=== PATIENT | female | born 1960 | race Caucasian/White ===

== ENCOUNTER 2025-02-16 13:31 | Outpatient (CLI) | payer BC, SELFPAY ==
--- NOTE | ~2025-02-16 | MM_ITS ---
EXAMINATION: MM screening alda BI w radha HISTORY: Screening TECHNIQUE: Craniocaudal and mediolateral oblique 3-D tomosynthesis images were obtained and synthetic 2-D images were generated. CAD analysis was submitted and interpreted. COMPARISON: No prior mammogram is available for comparison at this institution. BREAST PARENCHYMAL COMPOSITION: Not Dense: The breasts are almost entirely fatty. FINDINGS: There is no evidence of suspicious mass, calcification, or architectural distortion to suggest malignancy. IMPRESSION: 1. No mammographic evidence of malignancy. Recommend routine screening mammography in one year. BI-RADS Category 2: Benign finding(s) Reviewed, dictated and finalized at location Q. IMPRESSION: 1. No mammographic evidence of malignancy. Recommend routine screening mammogra phy in one year. BI-RADS Category 2: Benign finding(s)
--- OUTSIDE RECORDS SUMMARY | 2025-02-16 15:30 | XMS_ITS | Encounter Summary ---
Author Organization [employer] Address 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
--- OUTSIDE RECORDS SUMMARY | 2025-02-16 15:30 | XMS_ITS | Encounter Summary ---
Author Organization [facility] Address 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
--- OUTSIDE RECORDS SUMMARY | 2025-02-16 15:30 | XMS_ITS | Encounter Summary ---
Author Organization [employer] Address 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
--- OUTSIDE RECORDS SUMMARY | 2025-02-16 15:30 | XMS_ITS | Encounter Summary ---
Author Organization [employer] Address 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
--- OUTSIDE RECORDS SUMMARY | 2025-02-16 15:30 | XMS_ITS | Encounter Summary ---
Author Organization [employer] Address 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
--- OUTSIDE RECORDS SUMMARY | 2025-02-16 15:30 | XMS_ITS | Encounter Summary ---
Author Organization [employer] [facility] Address 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 Gender Identity Not on file Sexual Orientation Not on file documented as of this encounter Plan of Treatment Not on file documented as of this encounter Procedures Procedure Name Priority Date/Time Associated Diagnosis Comments MAMMO SCREENING BILAT Routine 03/15/2008 3:48 PM TAILING MACHINE OPERATOR documented in this encounter Results * MAMMO SCREENING BILAT (03/15/2008 3:48 PM TAILING MACHINE OPERATOR) Anatomical Region Laterality Modality Breast Bilateral Other 03/15/2008 3:48 PM TAILING MACHINE OPERATOR Narrative 03/16/2008 8:20 AM TAILING MACHINE OPERATOR [facility] [place] [address] [place], [place] [address] Admit Date: 03/15/2008 DAMARIS STARKEY Sex: F Admit Prov: DAMARIS BOWEN Date: 1960 Primary Care Prov: DAMARIS BOWEN CMRN: [id number] [id number] Ordering Prov: DAMARIS BOWEN Accession Number: [id number] Interpretation SCREENING MAMMOGRAM Findings: There are scattered fibroglandular densities. No significant mass, malignant calcification or architectural distortion is noted. Summary: No mammographic evidence of malignancy. There has been no significant change from prior study of 02/08. Recommendations: Bilateral yearly screening mammogram is recommended. Assessment BIRADS: 1-Negative Recommendation: Normal interval follow-up Dictated by: MIRTHA FERNANDEZ Electronically signed by: MIRTHA FERNANDEZ 03/16/2008 08:20 Transcribed: 03/16/2008 08:20 CXZ Procedure Note Mirtha Fernandez - 03/16/[address] [address] Admit Date: 03/15/2008 SELENEADAMS BAXTERDAMARIS Sex: F Admit Prov: DAMARIS BOWEN Date: 1960 Primary Care Prov: DAMARIS BOWEN CMRN: [id number] [id number] [facility] Ordering Prov: DAMARIS BOWEN Interpretation SCREENING MAMMOGRAM Findings: There are scattered fibroglandular densities. Nosignificant mass, malignant calcification or architectural distortion is noted. Summary: No mammographic evidence of malignancy. There has been no significant change from prior study of 02/08. Recommendations: Bilateral yearly screening mammogram is recommended. Assessment BIRADS: 1-Negative Recommendation: Normal interval follow-up Dictated by: MIRTHA FERNANDEZ Electronically signed by: MIRTHA FERNANDEZ 03/16/2008 08:20 Transcribed: 03/16/2008 08:20 CXZ Damaris Bowen MD MAMMO ORDERABLES Final Result documented in this encounter Visit Diagnoses Diagnosis Other screening mammogram documented in this encounter Care Teams Human Geography Faculty Member Relationship Specialty Start Date End Date Damaris Bowen MD [facility] [address] [address] PCP - General 02/22/04 documented as of this encounter
--- OUTSIDE RECORDS SUMMARY | 2025-02-16 15:30 | XMS_ITS | Encounter Summary ---
Author Organization [facility] Address [address] [place] [address] Care Team Providers Care Nuclear Control Operator Name Role Phone Damaris Bowen MD Primary Care Provider Encounter Details Date Type Department Care Team (Late st Contact Info) Description 09/19/2007 Outpatient Historical [facility] [address] [place] [address] [address] [place] [address] Abnormal Mammogram, Unspecified Social History Tobacco Use Types Packs/Day Years Used Date Smoking Tobacco: Never Assessed Comments Unknown Sex and Gender Information Value Date Recorded Sex Assigned at Not on file 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 Gender Identity Not on file Sexual Orientation Not on file documented as of this encounter Plan of Treatment Not on file documented as of this encounter Procedures Procedure Name Priority Date/Time Associated Diagnosis Comments MAMMO DIAGNOSTIC UNI RIGHT W OR WO CAD Routine 09/19/2007 10:46 AM CDT documented in this encounter Results * MAMMO DIGITAL DIAG UNI RIGHT (09/19/2007 10:46 AM CDT) Anatomical Region Laterality Modality Breast Right Other 09/19/2007 10:4 6 AM CDT Narrative 09/19/2007 5:39 PM CDT [address] [address] Admit Date: 09/19/2007 DAMARIS STARKEY Sex: F Admit Prov: DAMARIS BOWEN Date: 1960 Primary Care Prov: DAMARIS BOWEN CMRN: [id number] [id number] [facility] Ordering Prov: DAMARIS BOWEN Accession Number: [id number] Interpretation RIGHT DIAGNOSTIC DIGITAL MAMMOGRAMS WITH COMPUTER ASSISTED DIAGNOSIS, 09/19/2007 Reason For Examination: Short-term followup study. Findings: Comparison is made to mammograms from March 2007. There are several small nodules in the right breast. The largest is in the lower-central portion of the breast and measures no more than 6 mm in size. There is no dominant or spiculated mass, malignant calcification or other sign of malignancy. There has been no significant change since 03/19/2007. Prior sonograms did document some cysts in this area. The CAD system was utilized. Conclusion: Stable nodules in the right breast. Recommendation: The patient should resume bilateral screening mammography in March 2008. Assessment BIRADS: 2-Benign finding Recommendation: Normal interval follow-up Dictated by: ABHISHEK MAGANA Electronically signed by: ABHISHEK MAGANA 09/19/2007 17:39 Transcribed: 09/19/2007 15:04 DKT Procedure Note Abhishek Magana MD - 09/19/[address] [address] Admit Date: 09/19/2007 DAMARIS STARKEY Sex: F Admit Prov: DAMARIS BOWEN Date: 1960 Primary Care Prov: DAMARIS BOWEN CMRN: [id number] Room: [facility] SSN: [id number] IMAGING SERVICES Ordering Prov: DAMARIS BOWEN Interpretation RIGHT DIAGNOSTIC DIGITAL MAMMOGRAMS WITH COMPUTER ASSISTEDDIAGNOSIS, 09/19/2007 Reason For Examination: Short-term followup study. Findings: Comparison is made to mammograms from March 2007. There are several small nodules in the right breast. The largest isin the lower-central portion of the breast and measures no more than 6 mm insize. There is no dominant or spiculated mass, malignant calcification orother sign of malignancy. There has been no significant change since03/19/2007. Prior sonograms did document some cysts in this area. The CAD systemwas utilized. Conclusion: Stable nodules in the right breast. Recommendation: The patient should resume bilateral screeningmammography in March 2008. Assessment BIRADS: 2-Benign finding Recommendation: Normal interval follow-up Dictated by: ABHISHEK MAGANA Electronically signed by: ABHISHEK MAGANA 09/19/2007 17:39 Transcribed: 09/19/2007 15:04 DKT Damaris Bowen MD MAMMO ORDERABLES Final Result documented in this encounter Visit Diagnoses Diagnosis Abnormal mammogram, unspecified documented in this encounter Care Teams Nuclear Control Operator Relationship Specialty Start Date End Date Damaris Bowen MD [address] [place] [address] PCP - General 02/22/04 documented as of this encounter
--- OUTSIDE RECORDS SUMMARY | 2025-02-16 15:31 | XMS_ITS | Encounter Summary ---
Author Organization [facility] Address 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
--- OUTSIDE RECORDS SUMMARY | 2025-02-16 15:31 | XMS_ITS | Clinical Summary ---
Author Organization [facility] Address [address] [place] [address] Phone Care Team Providers Care Nursing Professor Name Role Phone Damaris Bowen MD Primary Care Provider [phone] Encounters Date Type Department Care Team Description 12/08/2024 External Device Data STL ABSTRACTION Provider, Abstract from Last 3 Months Family History Medical History Relation Name Comments Breast Cancer Mother Breast Cancer Other M GR Aunt age of onset u nknown Cancer Neg Hx Ovarian Cancer Neg Hx Relation Name Status Comments Mother Other M GR Aunt Social History Tobacco Use Types Packs/Day Years Used Date Smoking Tobacco: Never Assessed Comments Unknown Sex and Gender Information Value Date Recorded Sex Assigned at Not on file 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 Gender Identity Not on file Sexual Orientation Not on file Occupation Industry Job Start Date Job End Date Not on file Not on file Not on file Not on file Plan of Treatment Health Maintenance Due Date Last Done Comments DTAP/TDAP/TD VACCINES (1 - Tdap) 1981 HPV/Cotest (21-29) 1983 CERVICAL CANCER SCREENING 01/26/1992 HPV/Cotest (30-65) 01/26/1992 PAP SMEAR 01/26/1992 COLORECTAL SCREENING 2007 Colorectal Cancer Screening 2007 FIT-DNA Q 3 years 2007 FIT/FOBT Q 1 year 2007 Flex Sig/CT Colonography Q 5 years 2007 ZOSTER VACCINE (1 of 2) 01/26/2012 INFLUENZA VACCINE (#1) 2024 BREAST CANCER SCREENING 01/23/2025 01/24/20 24, 01/05/2023, 12/08/2021, Additional history exists RSV VACCINE (60+ or ) (1 - 1-dose 75+ series) 2037 Procedures Procedure Name Priority Date/Time Associated Diagnosis Comments MAMMO 3D JOSE SCREEN BILAT W OR WO CAD Routine 01/24/2024 3:25 PM CDT Encounter for screening mammogram for breast cancer from Last 3 Months or Most Recently Relevant to Health Maintenance Results * MAMMO 3D JOSE SCREEN BILAT W OR WO CAD (01/24/2024 3:25 PM CDT) Anatomical Region Laterality Modality Breast Bilateral Mammography 01/24/2024 3:25 PM CDT Impressions 01/24/2024 3:47 PM CDT FINDINGS/IMPRESSION: No suspicious mass, suspicious microcalcifications, or architectural distortion in either breast is identified. Since the prior study, there has been no significant interval change. The computer aided diagnosis detects no significant abnormality. OVERALL FINAL ASSESSMENT: BI-RADS CATEGORY 1 : Negative RECOMMENDATIONS: Routine screening mammogram in one year. DICTATION LOCATION: [facility] Narrative 01/24/2024 3:47 PM CDT BILATERAL FULL-FIELD DIGITAL SCREENING MAMMOGRAM WITH CAD WITH 3D TOMOSYNTHESIS DATE: 01/24/2024 3:25 PM HISTORY: Routine screening. TECHNIQUE: Full-field digital craniocaudal and mediolateral oblique projections of both breasts were obtained. Low-dose full-field digital breast tomosynthesis examination was performed with 2D and 3D acquisitions. Examination is read in conjunction with computer aided detection. COMPARISON: BREAST COMPOSITION: There are scattered areas of fibroglandular density. Procedure Note Betsy Canas MD - 01/24/2024 BILATERAL FULL-FIELD DIGITAL SCREENING MAMMOGRAM WITH CAD WITH 3D TOMOSYNTHESIS DATE: 01/24/2024 3:25 PM HISTORY: Routine screening. TECHNIQUE: Full-field digital craniocaudal and mediolateral oblique projections of both breasts were obtained. Low-dose full-field digital breast tomosynthesis examination was performed with 2D and 3D acquisitions. Examination is read in conjunction with computer aided detection. COMPARISON: BREAST COMPOSITION: There are scattered areas of fibroglandular density. FINDINGS/IMPRESSION: No suspicious mass, suspicious microcalcifications, or architectural distortion in either breast is identified. Since the prior study, there has been no significant interval change. The computer aided diagnosis detects no significant abnormality. OVERALL FINAL ASSESSMENT: BI-RADS CATEGORY 1 : Negative RECOMMENDATIONS: Routine screening mammogram in one year. DICTATION LOCATION: [facility] Damaris Bowen MD MAMMO ORDERABLES Final Result from Last 3 Months or Most Recently Relevant to Health Maintenance Insurance [facility] OPEN ACCESS HMO Care Teams Nursing Professor Relationship Specialty Start Date End Date Damaris Bowen MD [address] [place] [address], [place] [address] PCP - General 02/22/04
--- OUTSIDE RECORDS SUMMARY | 2025-02-16 15:31 | XMS_ITS | Clinical Summary ---
Author Organization [facility] Address [address] [place] [address] Care Team Providers Care Lasting Machine Operator Bed Name Role Phone Damaris Bowen MD Primary Care Provider [phone] Source Comments [facility],non-[facility] Affiliates and Associated Physician Practices is amultiple site organization consisting of ambulatory clinics and hospital sitesin [place], [place] and [place]. This disclosure is being madepursuant to the Care Everywhere program and may not contain all information available regarding this patient. Last updated 18.[facility] [place] Allergies Active Allergy Reactions Criticality Noted Date Comments Penicillins Rash Low 10/26/2014 Sulfa Drugs Rash Low 10/26/2014 Medications * Be aware that medications may not be up to date on this document. Alwaysverify current medications with the patient. ibuprofen (MOTRIN) 200 MG tablet Take 400 mg by mouth every 6 hours as needed for Pain Active olopatadine (PATADAY) 0.2 % ophthalmic solution Instill 1 Drop into both eyes once daily Active loratadine (Claritin) 10 MG tablet Take 10 mg by mouth once daily Active Active Problems No known active problems Social History Tobacco Use Types Packs/Day Years Used Date Smoking Tobacco: Never Smokeless Tobacco: Never Alcohol Use Standard Drinks/Week Comments No 0 (1 standard drink = 0.6 oz pur e alcohol) Comments Unknown Sex and Gender Information Value Date Recorded Sex Assigned at Not on file Legal Sex Female 1:23 PM CDT Gender Identity Not on file Sexual Orientation Not on file Last Filed Vital Signs Vital Sign Reading Time Taken Comments Blood Pressure 120/82 10/26/2014 3:46 PM CDT Pulse 74 10/26/2014 3:46 PM CDT Temperature 36.8 C (98.2 F) 10/26/2014 12:39 PM CDT Respiratory Rate 18 10/26/2014 3:46 PM CDT Oxygen Saturation 95% 10/26/2014 3:46 PM CDT Inhaled Oxygen Concentration - - Weight 82.6 kg (182 lb) 01/31/2022 1:14 PM CDT Height 157.5 cm (5' 2) 01/31/2022 1:14 PM CDT Body Mass Index 33.29 01/31/2022 1:14 PM CDT Plan of Treatment Health Maintenance Due Date Last Done Comments COLOGUARD (AGES 45-75) - COL ON CA SCREENING 1962 CT COLONOGRAPHY - COLON CA SCREENING 1962 FIT - COLON CA SCREENING 1962 FLEX SIG - COLON CA SCREENING 1962 LIPID TESTING 1962 MAMMOGRAM 1962 HIV SCREENING 1977 HEPATITIS C SCREENING 01/21/1980 DTAP/TDAP/TD VACCINES (1 - Tdap) 1981 PAP SMEAR 1983 PNEUMOCOCCAL VACCINE 50+ (1 of 1 - PCV) 01/26/2012 ZOSTER VACCINE (1 of 2) 01/26/2012 SCREENING FOR DIABETES 12/05/2021 DEPRESSION SCREENING 05/06/2024 COLON MONITORING 10/26/2024 10/26/2014, 10/26/2014 COLONOSCOPY - COLON CA SCREENING 10/26/2024 10/26/2014, 10/26/2014 Colorectal Cancer Screening 10/26/2024 COVID-19 VACCINE (1 - 2023-2 5 season) 2025 INFLUENZA VACCINE (#1) 2025 Respiratory Syncytial Virus (RSV) Vaccine Pt: or over 60 yrs (1 - 1-dose 75+ series) 2037 HEPATITIS B VACCINE Aged Out No longe r eligible based on patient's age to complete this topic HIB VACCINE Aged Out No longer eligi ble based on patient's age to complete this topic HPV VACCINE Aged Out No longer eligi ble based on patient's age to complete this topic MENINGOCOCCAL (Group B) VACCINE SHARED DECISION-MAKING Aged Out No longer eligible based on patient's age to complete this topic MENINGOCOCCAL GROUPS A/C/Y/W VACCINE Aged Out No longer eligible b ased on patient's age to complete this topic Procedures Procedure Name Priority Date/Time Associated Diagnosis Comments ENDOSCOPY, COLON, SCREENING Routine 10/26/2014 2:51 PM CDT from Last 3 Months or Most Recently Relevant to Health Maintenance Results * ENDOSCOPY, COLON, SCREENING (10/26/2014 2:51 PM CDT) Report Endoscopy POC _ Patient Name: Damaris Tess Procedure Date: 10/26/2014 2:51 PM Date of : 1960 Admit Type: Outpatient Age: 54 Gender: Female Attending MD: Kenneth Engel MD _ Procedure: Colonoscopy Indications: Screening for colorectal malignant neoplasm Providers: Kenneth Engel MD (Doctor), Nicolette Akbar RN, Gaye Sanders, Pigment Grinder Referring MD: Damaris Bowen MD (Referring MD) Medicines: Monitored Anesthesia Care Complications: No immediate complications. _ Procedure: Pre-Anesthesia Assessment: - ASA Grade Assessment: II - A patient with mild systemic disease. - Airway Examination: Mallampati Class I (tonsillar pillars visualized). After I obtained informed consent, the scope was passed under direct vision. Throughout the procedure, the patient's blood pressure, pulse, and oxygen saturations were monitored continuously. The Colonoscope was introduced through the anus and advanced to the cecum, identified by appendiceal orifice and ileocecal valve. The colonoscopy was performed without difficulty. The patient tolerated the procedure well. The quality of the bowel preparation was good. Impression: - The entire examined colon is normal. Findings: The colon (entire examined portion) appeared normal. _ Recommendation: - Repeat colonoscopy in 10 years for screening purposes. - Repeat colonoscopy sooner in the event of new symptoms ie: bleeding, weight loss or change in bowel habits etc, or if a family member (mother, father, sister, brother) is diagnosed with polyps or colon cancer. Procedure Code(s): --- Professional --- 62388, Colonoscopy, flexible, proximal to splenic flexure; diagnostic, with or without collection of specimen(s) by brushing or washing, with or without colon decompression (separate procedure) --- Technical --- 51053, Colonoscopy, flexible, proximal to splenic flexure; diagnostic, with or without collection of specimen(s) by brushing or washing, with or without colon decompression (separate procedure) Diagnosis Code(s): --- Professional --- V76.51, Special screening for malignant neoplasms of colon --- Technical --- V76.51, Special screening for malignant neoplasms of colon CPT copyright 2013 [employer]. All rights reserved. The codes documented in this report are preliminary and upon certified professional coder review may be revised to meet current compliance requirements. Kenneth Engel MD 10/26/2014 3:08 PM This report has been signed electronically. Number of Addenda: 0 Note Initiated On: 10/26/2014 2:51 PM [facility] ENDOSCOPY 10/26/2014 2:51 PM CDT us Kenneth Engel MD GI PROCEDURE ORDERABLES Edited R esult - Final HC ENDOSCOPY from Last 3 Months or Most Recently Relevant to Health Maintenance Insurance [facility] Care Teams Lasting Machine Operator Bed Relationship Specialty Start Date End Date Damaris Bowen MD [address] [id number] PCP - General Internal Medicine 09/14/14
--- OUTSIDE RECORDS SUMMARY | 2025-02-16 15:31 | XMS_ITS | Clinical Summary ---
Author Organization [facility] Address [address] [place] [address] Care Team Providers Care Heel Shaver Name Role Phone Damaris Bowen MD Primary Care Provider [phone] Allergies No known active allergies Medications ibuprofen 200 mg tab/cap Take 2 tablet/caps ule (400 mg total) by mouth every 6 (six) hours as needed Active loratadine (CLARITIN) 10 mg tablet Take 1 tablet (10 mg total) by mouth daily Active Active Problems No known active problems Social History Tobacco Use Types Packs/Day Years Used Date Smoking Tobacco: Never Smokeless Tobacco: Never Tobacco Cessation:Counseling Given: Not Answered AUDIT-C Answer Date Recorded Q1: How often do you have a drink containing alcohol? Never 11/18/2023 Q2: How many drinks containi ng alcohol do you have on a typical day when you are drinking? Patient does not drink Q3: How often do you have si x or more drinks on one occasion? 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 Gender Identity Not on file Sexual Orientation Not on file Obstetrics History Last Filed Vital Signs Vital Sign Reading Time Taken Comments Blood Pressure 118/88 03/02/2024 11:43 AM CDT Pulse 64 03/02/2024 11:43 AM CDT Temperature - - Respiratory Rate 18 11/18/2023 3:45 PM CDT Oxygen Saturation - - Inhaled Oxygen Concentration - - Weight 78.9 kg (174 lb) 03/02/2024 11:43 AM CDT Height 156.2 cm (5' 1.5) 03/02/2024 11:43 AM CD T Body Mass Index 32.34 03/02/2024 11:43 AM CDT Plan of Treatment Health Maintenance Due Date Last Done Comments Cervical Cancer Screening 1960 Colon Cancer Screening-Colonoscopy 1962 Depression Screening 1962 Hepatitis C Screening 1962 Hepatitis B Screening 01/26/1980 Regular Well Visit/Exam 18-64 01/26/1980 DTaP/Tdap/Td Vaccine (1 - Tdap) 11/11/2021 11/10/2021 Covid-19 Vaccine ( - season) 2025 08/05/2021, 08/28/2020, 08/06/2020 Influenza Vaccine (#1) 2025 02/10/2020 Breast Cancer Screening-Mammogram 01/23/2025 01/24/2024, 01/24/2024, 01/05/2023, Additional history exists Zoster Vaccine Completed 01/31/2022, 11/24/2021 Pneumococcal vaccine <65 Aged Out No longer eligible based on patient's age to complete this topic Insurance [employer] Address: [facility] [id number] [id number] Care Teams Heel Shaver Relationship Specialty Start Date End Date Damaris Bowen MD [address] [address] PCP - General Internal Medicine 10/14/23
--- OUTSIDE RECORDS SUMMARY | 2025-02-16 15:31 | XMS_ITS | Encounter Summary ---
Author Organization [facility] Address 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
--- OUTSIDE RECORDS SUMMARY | 2025-02-16 15:31 | XMS_ITS | Encounter Summary ---
Author Organization [facility] Address 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
== END 2025-02-16 13:32 | disposition home or self-care (01) ==
PROVIDERS: PCP Internal Medicine; Visit Provider Internal Medicine
DX: Z12.31 Encounter for screening mammogram for malignant neoplasm of breast (principal)
CPT/HCPCS: 77063; 77067